=== PATIENT | female | born 1960 | race Caucasian/White ===

== ENCOUNTER 2017-12-06 07:06 | Day surgery (SDC) | payer OTHER ==
[2017-12-06] MEDS ORDERED: LIDOCAINE 100 MG SYRINGE (08:59)
[2017-12-06] MEDS ORDERED: PROPOFOL 40 ML (08:59)
== END 2017-12-06 10:25 | disposition home or self-care (01) ==
LOC: GIL 07:06
DX: Z12.11 Encounter for screening for malignant neoplasm of colon (principal); K64.8 Other hemorrhoids; J45.909 Unspecified asthma, uncomplicated; E03.9 Hypothyroidism, unspecified
CPT/HCPCS: 45378